=== PATIENT | female | born 1965 | race American Indian/Alaskan Native ===

== ENCOUNTER 2017-12-05 17:12 | Emergency (ER) | payer SELFPAY ==
[2017-12-05 17:54] LABS: Bilirubin,Urine NEG (Negative); Blood,Urine MOD (Negative); Color,Urine Yellow (Yellow); Urobilinogen,Urine < 2.0 mg/dL (<2.0)
[2017-12-05 17:55] LABS: WBC,Urine > 182.0 /HPF (0.0-6.0)
[2017-12-05] MEDS ORDERED: NORCO 7.5/325 PO ONE (18:31)
[2017-12-05] MEDS ORDERED: LEVAQUIN PO ONE (18:31)
--- NOTE | 2017-12-05 18:37 | Emergency Department Report ---
ED Female HPI - General Chief complaint: Back Pain/Injury Stated complaint: BACK/FLANK PAIN Time Seen by Provider: 12/05/17 18:21 Source: patient, EMS Mode of arrival: Stretcher Limitations: No Limitations - History of Present Illness Initial comments: 52-year-old woman in good general health reports constant urge to urinate and sensation that bladder is distended and unable to fully urinate, producing mostly dribbles for the past 4-5 days. She didn't had symptoms like this before , has no underlying genitourinary disorders, and has not been ill recently and has no secondary symptoms. She has not had any fever chills or diaphoresis, only mild lower abdominal and lower back discomfort, no chest pains, no shortness of breath, no weakness or lightheadedness. She has a secondary concern about diabetes, reporting that she has a sharp twinge-like ache over the dorsum of her right foot only, but no numbness, and no similar discomfort in the remainder of her foot or on her left lower extremity either. 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 She has not had any injury, but may have been wearing the shoes tightly. Onset/Timin -: Gradual, days(s) Radiation: non-radiating, suprapubic, other (right lower back) Severity: moderate Severity scale (0 -10): 5 Quality: aching Consistency: constant Improves with: none Worsens with: none Are you Now?: No Associated Symptoms: denies other symptoms - Related Data Previous Rx's Medication Instructions Recorded Last Taken Type Cyclobenzaprine [Flexeril] 10 mg PO TID PRN #14 tablet 04/01/13 Unknown Rx Hydrocodone Bit/Acetaminophen 1 each PO Q4-6H #20 tablet 04/01/13 Unknown Rx [Lortab 5-500 Tablet] Ibuprofen [Motrin] 800 mg PO TID PRN #14 tablet 04/01/13 Unknown Rx Acetaminophen with Codeine 1 each PO Q4-6H PRN #20 tablet 10/09/14 Unknown Rx [Acetaminophen-Codeine #4 TAB] Meloxicam [Mobic] 15 mg PO Q24HR #14 tablet 10/09/14 Unknown Rx HYDROcodone/APAP 5-325 [[place] 1 each PO Q6HR PRN #12 tablet 12/05/17 Unknown Rx 5/325] Levofloxacin [Levaquin TAB] 500 mg PO QDAY #9 tablet 12/05/17 Unknown Rx Ondansetron [Zofran ODT TAB] 4 mg PO Q8HR PRN #10 tab.rapdis 12/05/17 Unknown Rx Phenazopyridine HCl 200 mg PO TID PRN #10 tablet 12/05/17 Unknown Rx Allergies Allergy/AdvReac Type Severity Reaction Status Date / Time No Known Allergies Allergy Unverified 04/01/13 07:28 ED Review of Systems ROS: Stated complaint: BACK/FLANK PAIN Other details as noted in HPI Comment: All other systems reviewed and negative Constitutional: no symptoms reported. denies: chills, diaphoresis, fever, malaise ENT: denies: throat pain Respiratory: denies: cough, shortness of breath, wheezing Cardiovascular: denies: chest pain, palpitations Endocrine: no symptoms reported Gastrointestinal: abdominal pain (low abdomen, suprapubic area) Genitourinary: urgency, dysuria, other (sensation of inability to urinate, frequent dribbling) Musculoskeletal: back pain (right lower back, myofascial area at lumbosacral junction). denies: joint swelling, arthralgia Skin: denies: rash, lesions Neurological: denies: headache, weakness, paresthesias Psychiatric: denies: anxiety, depression ED Past Medical Hx - Past Medical History Previous Medical History?: No - Surgical History Past Surgical History?: No Additional Surgical History: tubal ligation - Social History Smoking Status: Never Smoker Substance Use Type: None - Medications Home Medications: Home Medications Medication Instructions Recorded Confirmed Last Taken Type Cyclobenzaprine [Flexeril] 10 mg PO TID PRN #14 tablet 04/01/13 Unknown Rx Hydrocodone Bit/Acetaminophen 1 each PO Q4-6H #20 tablet 04/01/13 Unknown Rx [Lortab 5-500 Tablet] Ibuprofen [Motrin] 800 mg PO TID PRN #14 tablet 04/01/13 Unknown Rx Acetaminophen with Codeine 1 each PO Q4-6H PRN #20 tablet 10/09/14 Unknown Rx [Acetaminophen-Codeine #4 TAB] Meloxicam [Mobic] 15 mg PO Q24HR #14 tablet 10/09/14 Unknown Rx HYDROcodone/APAP 5-325 [[place] 1 each PO Q6HR PRN #12 tablet 12/05/17 Unknown Rx 5/325] Levofloxacin [Levaquin TAB] 500 mg PO QDAY #9 tablet 12/05/17 Unknown Rx Ondansetron [Zofran ODT TAB] 4 mg PO Q8HR PRN #10 tab.rapdis 12/05/17 Unknown Rx Phenazopyridine HCl 200 mg PO TID PRN #10 tablet 12/05/17 Unknown Rx ED Physical Exam - General Limitations: No Limitations General appearance: alert, in distress (mild discomfort, but fairly comfortable at rest on stretcher) - Head Head exam: Present: atraumatic, normocephalic - Eye Eye exam: Present: PERRL, EOMI - ENT ENT exam: Present: mucous membranes moist - Neck Neck exam: Present: normal inspection. Absent: tenderness - Respiratory Respiratory exam: Present: normal lung sounds bilaterally. Absent: respiratory distress, wheezes, rales, rhonchi - Cardiovascular Cardiovascular Exam: Present: regular rate, normal heart sounds, systolic murmur (1/6 systolic murmur heard in left lower sternal border). Absent: JVD, S3, S4 - GI/Abdominal GI/Abdominal exam: Present: soft, tenderness (mild, nonspecific nonlocalized, lower abdomen, perhaps a little more in suprapubic area). Absent: distended, guarding, rebound - External exam: Present: other (there is only minimal residual urine after placement of catheter, but it is cloudy. No evidence of acute retention) - Extremities Exam Extremities exam: Present: normal inspection, full ROM, other (normal sensation over dorsum of foot, good motor tone, normal capillary refill right lower extremity). Absent: tenderness, pedal edema - Back Exam Back exam: Present: normal inspection, tenderness (myofascial tenderness right lumbar myofascial soft tissue) - Neurological Exam Neurological exam: Present: alert, oriented X3, CN II-XII intact. Absent: motor sensory deficit - Psychiatric Psychiatric exam: Present: normal affect, normal mood - Skin Skin exam: Present: warm, dry ED Course Vital Signs 12/05/17 17:26 Temperature 37.2 C Pulse Rate 76 Respiratory 16 Rate Blood Pressure 124/76 O2 Sat by Pulse 100 Oximetry ED Medical Decision Making - Lab Data Result diagrams: 12/05/17 18:48 12/05/17 18:48 Patient has significant pyuria with clumping and 3+ bacteriuria on urinalysis, compatible with significant cystitis, probable early pyelonephritis. - Medical Decision Making Patient has a significant urinary tract infection, likely early pyelonephritis, with right lower back pain, indicating possible early right-sided infection. White count is elevated, but there is only modest left shift, and no bandemia. And she has no electrolyte abnormalities. She is stable for discharge, and can be treated with a renal intensive medication, and I will place patient on Levaquin, with initial dose given in the emergency department. There is no actual urinary retention, as there was very little residual after placement of catheter. Catheter will be removed, patient will be placed on urinary antispasmodics, as well as pain medication. - Differential Diagnosis urinary tract infection, pyelonephritis, bladder stone, urinary retention Critical Care Time: No Critical care attestation.: If time is entered above; I have spent that time in minutes in the direct care of this critically ill patient, excluding procedure time. ED Disposition Clinical Impression: Pyelonephritis Urinary tract infection Qualifiers: Urinary tract infection type: acute cystitis Hematuria presence: without hematuria Qualified Code(s): N30.00 - Acute cystitis without hematuria Disposition: TO HOME OR SELFCARE Is pt being admited?: No Does the pt Need Aspirin: No Condition: Stable Instructions: Urinary Tract Infection in Women (ED) Prescriptions: HYDROcodone/APAP 5-325 [[place] 5/325] 1 each PO Q6HR PRN #12 tablet PRN Reason: Pain Levofloxacin [Levaquin TAB] 500 mg PO QDAY #9 tablet Ondansetron [Zofran ODT TAB] 4 mg PO Q8HR PRN #10 tab.rapdis PRN Reason: Nausea Phenazopyridine HCl 200 mg PO TID PRN #10 tablet PRN Reason: urinary urge Referrals: PRIMARY CARE, [Primary Care Provider] - 3-5 Days Time of Disposition: 19:36
[2017-12-05 19:09] LABS: Basophils # (Auto) 0.1 K/mm3 (0.0-0.1); Basophils % (Auto) 0.3 % (0.0-1.8); Eosinophils % (Auto) 0.2 % (0.0-4.3); Hematocrit 38.5 % (30.3-42.9); Lymphocytes # (Auto) 1.8 K/mm3 (1.2-5.4); Lymphocytes % (Auto) 11.2 % (13.4-35.0); Mean Corpuscular HGB Conc 34 % (30-34); Mean Corpuscular Hemoglobin 33 pg (28-32); Mean Corpuscular Volume 97 fl (79-97); Monocytes # (Auto) 1.4 K/mm3 (0.0-0.8); Monocytes % (Auto) 8.5 % (0.0-7.3); Platelet Count 212 K/mm3 (140-440); Red Blood Count 3.97 M/mm3 (3.65-5.03); Red Cell Distribution Width 14.9 % (13.2-15.2)
[2017-12-05 19:27] LABS: BUN/Creatinine Ratio 30; Blood Urea Nitrogen 15 mg/dL (7-17); Calcium 8.8 mg/dL (8.4-10.2); Hemolysis Index 11
[2017-12-05] MEDS ORDERED: PYRIDIUM PO ONE (19:43)
[2017-12-05 19:59] VITALS: BP 169/89
== END 2017-12-05 20:03 | disposition home or self-care (01) ==
LOC: ED 17:12
DX: N10 Acute pyelonephritis (principal); N30.00 Acute cystitis without hematuria; M79.671 Pain in right foot; Z98.51 Tubal ligation status
CPT/HCPCS: 36415; 51702; 80048; 81001; 85025

== ENCOUNTER 2022-01-09 15:52 | Emergency (ER) | payer OTHER ==
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
[2022-01-09 19:15] VITALS: BP 170/80
== END 2022-01-09 19:14 | disposition home or self-care (01) ==
LOC: ED 15:52
DX: M79.18 Myalgia, other site (principal); V89.2XXA Person injured in unspecified motor-vehicle accident, traffic, initial encounter; Y93.89 Activity, other specified; Y92.89 Other specified places as the place of occurrence of the external cause; Y99.8 Other external cause status
CPT/HCPCS: 72040; 99283